=== PATIENT | male | born 1970 | race Two or more races ===

== ENCOUNTER 2024-03-03 16:28 | Emergency (ER) | payer OTHER ==
[~2024-03-03] VITALS: Ht 167.6 cm; Wt 72.6 kg
[2024-03-03] MEDS ORDERED: KETOROLAC TROMETHAMINE 30 MG VIAL IM STA (19:07)
[2024-03-03] MEDS ORDERED: ORPHENADRINE CITRATE 30 MG/ML AMPUL IM STA (19:07)
[2024-03-03] MEDS ORDERED: DEXAMETHASONE SODIUM PHOSPHATE 4 MG/ML VIAL IM STA (19:08)
== END 2024-03-03 19:30 | disposition home or self-care (01) ==
LOC: ER 16:30
DX: M54.2 Cervicalgia (principal)